=== PATIENT | female | born 1995 | race African-American/Black ===

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

== ENCOUNTER 2017-01-07 08:31 | Emergency (ER) | payer OTHER ==
[~2017-01-07] VITALS: Ht 162.6 cm; Wt 50.0 kg
--- NOTE | 2017-01-07 08:47 | PD ---
HPI . white particles in urine Chief Complaint: Complaint Time Seen by Provider: 08:47 Travel History International Travel<30 days: No Contact w/Intl Traveler<30days: No Traveled to known affect area: No History of Present Illness HPI 21-year-old female who was previously seen on December 14, 2016 with vaginal discharge and found to have chlamydia, here with complaints of white particles in her urine for the past 2 weeks. Patient tells me that about a month prior she had a Pap smear at her primary care doctor's office and everything was normal. She was seen here on December 14 for vaginal discharge and treated for chlamydia and gonorrhea. PCR testing demonstrated chlamydia. Patient is complaining now of small white particles in her urine. She is somewhat of a poor historian and tells me that she thinks she may have vaginal discharge. When asked to clarify, she now says that she does not have a vaginal discharge. I asked her about high risk sexual behavior, and her answer was also unclear. PFSH Past Medical History Diminished Hearing: No GERD: Yes Immunizations Current: Yes ?: Not LMP: 12/22/2016 Social History Alcohol Use: No Tobacco Use: No Substance Use: No Allergies-Medications (Allergen,Severity, Reaction): Coded Allergies: No Known Allergies (Unverified , 12/14/16) Reported Meds & Prescriptions Reported Meds & Active Scripts Active Review of Systems General / Constitutional: No: Fever Eyes: No: Visual changes HENT: No: Headaches Cardiovascular: No: Chest Pain or Discomfort Respiratory: No: Shortness of Breath Gastrointestinal: No: Abdominal Pain Genitourinary: Positive: Other (particles in urine), No: Dysuria Musculoskeletal: No: Pain Skin: No Rash Neurologic: No: Weakness Psychiatric: No: Depression Endocrine: No: Polydipsia Hematologic/Lymphatic: No: Easy Bruising Physical Exam Narrative GENERAL: AAO x 3, no acute distress, Well-nourished, well-developed patient. SKIN: Warm and dry. No visible rashes or bruising. HEAD: Normocephalic and atraumatic. EYES: No scleral icterus. No injection or drainage. ENT: No nasal drainage noted. Airway patent. NECK: Supple, trachea midline. No JVD. CARDIOVASCULAR: Regular rate and rhythm without murmurs, gallops, or rubs. RESPIRATORY: Breath sounds equal bilaterally. No accessory muscle use. No rhonchi or rales. GASTROINTESTINAL: Abdomen soft, non-tender, nondistended. : thick white discharge on pelvic exam: Marcy MERCADO present EXTREMITIES: No cyanosis or edema. BACK: Nontender without obvious deformity. No CVA tenderness. PSYCH: AAO x 3, normal affect. Data Data Orders Urinalysis - C+S If Indicated (01/07/17 08:38) Ed Urine Pregnancytest Poc (01/07/17 08:38) Gc And Chlamydia Pcr (01/07/17 08:52) Wet Prep Profile (01/07/17 09:01) Labs Laboratory Tests Test 01/07/17 01/07/17 08:50 09:05 Urine Color YELLOW Urine Turbidity CLEAR Urine pH 5.5 Urine Specific [place] 1.021 Urine Protein NEG mg/dL Urine Glucose (UA) NEG mg/dL Urine Ketones NEG mg/dL Urine Occult Blood NEG Urine Nitrite NEG Urine Bilirubin NEG Urine Urobilinogen LESS THAN 2.0 MG/DL Urine Leukocyte Esterase SMALL Urine RBC 1 /hpf Urine WBC 2 /hpf Urine Squamous Epithelial 7 /hpf Cells Urine Mucus FEW /lpf Microscopic Urinalysis Comment CULT NOT INDICATED Clue Cells (Wet Prep) NONE SEEN Vaginal Trichomonas (Wet Prep) NONE SEEN Vaginal Yeast (Wet Prep) NONE SEEN MDM Medical Decision Making Medical Screen Exam Complete: Yes Emergency Medical Condition: Yes Medical Record Reviewed: Yes Differential Diagnosis UTI versus vaginitis versus chlamydia versus gonorrhea versus BV Narrative Course 21-year-old female who was previously seen on December 14, 2016 with vaginal discharge and found to have chlamydia, here with complaints of white particles in her urine for the past 2 weeks. Patient tells me that about a month prior she had a Pap smear at her primary care doctor's office and everything was normal. She was seen here on December 14 for vaginal discharge and treated for chlamydia and gonorrhea. PCR testing demonstrated chlamydia. Patient is complaining now of small white particles in her urine. She is somewhat of a poor historian and tells me that she thinks she may have vaginal discharge. When asked to clarify, she now says that she does not have a vaginal discharge. I asked her about high risk sexual behavior, and her answer was also unclear. Patient seen and examined. The only abnormality found on examination was thick white vaginal discharge. Wet prep was sent for analysis. GC PCR and UA ordered. Laboratory Tests Test 01/07/17 01/07/17 08:50 09:05 Urine Color YELLOW Urine Turbidity CLEAR Urine pH 5.5 Urine Specific [place] 1.021 Urine Protein NEG mg/dL Urine Glucose (UA) NEG mg/dL Urine Ketones NEG mg/dL Urine Occult Blood NEG Urine Nitrite NEG Urine Bilirubin NEG Urine Urobilinogen LESS THAN 2.0 MG/DL Urine Leukocyte Esterase SMALL Urine RBC 1 /hpf Urine WBC 2 /hpf Urine Squamous Epithelial 7 /hpf Cells Urine Mucus FEW /lpf Microscopic Urinalysis Comment CULT NOT INDICATED Clue Cells (Wet Prep) NONE SEEN Vaginal Trichomonas (Wet Prep) NONE SEEN Vaginal Yeast (Wet Prep) NONE SEEN 1020: GC still pending: discussed with lab support service tech: will take 2 hours I discussed with patient and she tells me she has been treated twice of gonorrhea and chlamydia, so she is certain she does not have it. She tells me she does not want any additional treatment and will hold off until results are made available. She will also go to [place] for additional STD testing. We had a discussion about her UA, which does not show any acute infection. She denies any dysuria and admits to small particles. I have explained that the vaginal discharge can come off in the urine and have different appearance that regular urine. She will f/u with her PCP for this. Patient verbalized understanding of instructions, questions were answered, and thanked me for their care. I advised them if their condition worsens, please return to the nearest emergency room for further care. Diagnosis Primary Impression: Vaginal discharge Patient Instructions: General Instructions Additional Instructions: Please return to emergency department if your symptoms return or worsen. Follow up with your primary care provider. Disposition: 01 DISCHARGE HOME Condition: Stable Zena Cheek Jan 07, 2017 08:47
[2017-01-07 09:21] LABS: BLOOD, URINE NEG (NEG); COMMENT (UR) CULT NOT INDICATED; CULTURE IF INDICATED CULT NOT INDICATED; GLUCOSE,URINE NEG (NEG); KETONE, URINE NEG (NEG); MUCUS URINE FEW /lpf (OCC); NITRITE,URINE NEG (NEG); PH, URINE 5.5 (5.0-8.5); SQUAMOUS EPITHELIAL CELL URINE 7 /hpf (0-5); URINE COLOR YELLOW (YELLW/STRAW)
[2017-01-07 11:52] LABS: CHLAMYDIA PCR NOT DETECTED (NOT DETECT); NEISSERIA PCR NOT DETECTED (NOT DETECT)
== END 2017-01-07 10:33 | disposition home or self-care (01) ==
LOC: NEPK 08:31
DX: N89.8 Other specified noninflammatory disorders of vagina (principal)
CPT/HCPCS: 81001; 84703; 87210; 87491; 87591; 99283

== ENCOUNTER 2017-06-03 01:57 | Emergency (ER) | payer OTHER, MEDICAID ==
[~2017-06-03] VITALS: Ht 162.6 cm; Wt 50.0 kg
[2017-06-03 01:58] VITALS: BP 115/91; PULSE 99; RESP 16; TEMP 98; O2SAT 98
[2017-06-03] MEDS ORDERED: DEXAMETHASONE SOD PHOS 20 MG/5 ML VIAL IM ONE (03:00)
--- NOTE | 2017-06-03 03:01 | PD ---
HPI Chief Complaint: ENT Complaint Time Seen by Provider: 02:55 Travel History International Travel<30 days: No Contact w/Intl Traveler<30days: No Traveled to known affect area: No History of Present Illness HPI 21-year-old female with no significant medical history presents to department for evaluation of a sore throat for 5 hours. Patient states she has not been recently. No fever or chills. States that the pain is severe and she is unable to swallow secondary to it. She has not taken anything for her pain. She has no other symptoms to report. [facility] Past Medical History Diminished Hearing: No GERD: Yes Immunizations Current: Yes ?: Not LMP: 05/19/17 Past Surgical History Surgical History: No Previous Surgery Social History Alcohol Use: No Tobacco Use: No Substance Use: No Allergies-Medications (Allergen,Severity, Reaction): Coded Allergies: No Known Allergies (Unverified , 06/03/17) Reported Meds & Prescriptions Reported Meds & Active Scripts Active No Active Prescriptions or Reported Medications Review of Systems Except as stated in HPI: all other systems reviewed are Neg Physical Exam Narrative GENERAL: Well-nourished, well-developed patient. SKIN: Focused skin assessment warm/dry. HEAD: Normocephalic. ENT: Mucosa pink and moist. Pharynx mildly erythematous and edematous without exudate.. No uvular edema. No uvular, palatal, or tonsillar deviation. Airway patent. Nasal turbinates appear normal without nasal blood, purulent drainage or septal hematoma. EYES: No scleral icterus. No injection or drainage. NECK: Supple, trachea midline. Tonsillar lymphadenopathy. CARDIOVASCULAR: Regular rate and rhythm without murmurs, gallops, or rubs. RESPIRATORY: Breath sounds equal bilaterally. No accessory muscle use. GASTROINTESTINAL: Abdomen soft, non-tender, nondistended. MUSCULOSKELETAL: No cyanosis, or edema. BACK: Nontender without obvious deformity. No CVA tenderness. Data Data Last Documented VS Vital Signs Date Time Temp Pulse Resp B/P (MAP) Pulse Ox O2 Delivery O2 Flow Rate FiO2 06/03/17 03:16 06/03/17 01:58 98.0 99 16 98 Room Air Orders Orders Dexamethasone Inj (Decadron Inj) (06/03/17 03:00) MDM Medical Decision Making Medical Screen Exam Complete: Yes Emergency Medical Condition: Yes Medical Record Reviewed: Yes Differential Diagnosis Pharyngitis versus tonsillitis versus laryngitis versus allergies versus common cold Narrative Course 21-year-old female presents for his primary for evaluation of sore throat pain. Patient appears without distress. Vital signs are stable. She does have erythematous and edematous pharynx without exudates. Patient is requesting something to help the symptoms. She is given IM Decadron. She is counseled on care and encouraged follow-up with primary care provider. She agrees to return immediately with any acute worsening symptoms. Diagnosis Primary Impression: Pharyngitis Qualified Codes: J02.9 - Acute pharyngitis, unspecified Referrals: [facility] Primary Care Physician Patient Instructions: General Instructions, Pharyngitis (ED) Additional Instructions: Warm salt water gargles may help alleviate symptoms Tylenol or ibuprofen as directed on the package as needed for pain and or fever Avoid acidic and abrasive foods Follow up with your primary care provider Return immediately to the ED with acute worsening of symptoms Med/Other Pt SpecificInfo: No Change to Meds Scripts No Active Prescriptions or Reported Meds Disposition: 01 DISCHARGE HOME Condition: Stable YunielVal DONOVAN Jun 03, 2017 03:01
== END 2017-06-03 03:17 | disposition home or self-care (01) ==
LOC: NEPC 01:57
DX: J02.9 Acute pharyngitis, unspecified (principal); K21.9 Gastro-esophageal reflux disease without esophagitis
CPT/HCPCS: 96372; 99284; J1100

== ENCOUNTER 2017-09-29 19:57 | Inpatient (IN) | payer OTHER, MEDICAID ==
[~2017-09-29] VITALS: Ht 162.6 cm; Wt 53.6 kg
[2017-09-29 20:15] VITALS: BP 119/64; PULSE 74; RESP 16; TEMP 98.4; O2SAT 96
[2017-09-29] MEDS ORDERED: ONDANSETRON HCL 4 MG/2 ML VIAL IV PUSH ONE (20:45)
[2017-09-29] MEDS ORDERED: SODIUM CHLOR 0.9% 1000 ML INJ 1,000 ML IV ONE (20:45)
--- NOTE | 2017-09-29 20:54 | PD ---
HPI Chief Complaint: Psychiatric Symptoms Time Seen by Provider: 20:20 Travel History International Travel<30 days: No Contact w/Intl Traveler<30days: No Traveled to known affect area: No History of Present Illness HPI 21-year-old black female presents to emergency department under [place] act by PD. Patient allegedly had overdosed on Excedrin. She states that she had taken 10-15 tablets this evening sometime between 6 and 7:00. The patient told police that she really did not take that many. She only had taken 2 according to the patient. She states that she has had a suicide gesture ingestion 4 years ago. She states that she's been overwhelmed here lately and no one would leave her alone. She denies any other ingestions. She does admit to feeling nauseous and she had vomited in the ambulance bay. Patient denies any recent illnesses. She denies any cutting. No fever chills. No chest pain or shortness of breath. No abdominal pain or urinary symptoms. Denies pre-see. On Depo-Provera. Patient does smoke, drink alcohol and smokes marijuana. PFSH Past Medical History Narrative Medical Prior suicide gesture Diminished Hearing: No GERD: Yes Immunizations Current: Yes Tetanus Vaccination: < 5 Years ?: Not Past Surgical History Surgical History: No Previous Surgery Social History Alcohol Use: Yes Tobacco Use: Yes Substance Use: Yes Allergies-Medications (Allergen,Severity, Reaction): Coded Allergies: No Known Allergies (Unverified , 06/03/17) Reported Meds & Prescriptions Reported Meds & Active Scripts Active No Active Prescriptions or Reported Medications Review of Systems General / Constitutional: No: Fever Eyes: No: Visual changes HENT: No: Headaches Cardiovascular: No: Chest Pain or Discomfort Respiratory: No: Shortness of Breath Gastrointestinal: Positive: Nausea, Vomiting, No: Abdominal Pain Genitourinary: No: Dysuria Musculoskeletal: No: Pain Skin: No Rash Neurologic: No: Weakness Psychiatric: Positive: Depression, Suicidal Ideations, Mood Disorder, Substance Abuse, No: Anxiety, Disorder of Thought, Homicidal Ideation Endocrine: No: Polydipsia Hematologic/Lymphatic: No: Easy Bruising Physical Exam Narrative GENERAL: Well-nourished, well-developed patient. SKIN: Warm and dry. HEAD: Normocephalic and atraumatic. EYES: No scleral icterus. No injection or drainage. ENT: No nasal drainage noted. Mucous membranes pink. Airway patent. NECK: Supple, trachea midline. Moves head freely without obvious discomfort. CARDIOVASCULAR: Regular rate and rhythm without murmurs, gallops, or rubs. RESPIRATORY: Breath sounds equal bilaterally. No accessory muscle use. GASTROINTESTINAL: Abdomen soft, non-tender, nondistended. EXTREMITIES: No cyanosis or edema. BACK: Nontender without obvious deformity. No CVA tenderness. NEURO: Patient is alert and oriented. no sensorimotor deficits. Nonfocal. Normal speech. PSYCH: No delusions. No auditory or visual hallucinations. Data Data Last Documented VS Vital Signs Date Time Temp Pulse Resp B/P (MAP) Pulse Ox O2 Delivery O2 Flow Rate FiO2 09/29/17 20:15 98.4 74 16 119/64 (82) 96 Orders Orders Complete Blood Count With Diff (09/29/17 20:05) Comprehensive Metabolic Panel (09/29/17 20:05) Urinalysis - C+S If Indicated (09/29/17 20:05) Ed Urine Pregnancytest Poc (09/29/17 20:05) Psych Screen (09/29/17 20:05) Drug Screen, Random Urine (09/29/17 20:05) Alcohol (Ethanol) (09/29/17 20:05) Tylenol (Acetaminophen) (09/29/17 20:05) Salicylates (Aspirin) (09/29/17 20:05) Iv Access Insert/Monitor (09/29/17 20:33) Sodium Chlor 0.9% 1000 Ml Inj (Ns 1000 M (09/29/17 20:45) Ondansetron Inj (Zofran Inj) (09/29/17 20:45) Tylenol (Acetaminophen) (09/30/17 00:30) Salicylates (Aspirin) (09/30/17 00:30) Ondansetron Inj (Zofran Inj) (09/30/17 01:15) Labs Laboratory Tests Test 09/29/17 19:35 09/29/17 20:20 09/30/17 00:30 White Blood Count 8.4 TH/MM3 Red Blood Count 4.41 MIL/MM3 Hemoglobin 13.8 GM/DL Hematocrit 41.7 % Mean Corpuscular Volume 94.4 FL Mean Corpuscular Hemoglobin 31.2 PG Mean Corpuscular Hemoglobin Concent 33.1 % Red Cell Distribution Width 13.4 % Platelet Count 268 TH/MM3 Mean Platelet Volume 8.6 FL Neutrophils (%) (Auto) 49.5 % Lymphocytes (%) (Auto) 39.1 % Monocytes (%) (Auto) 10.4 % Eosinophils (%) (Auto) 0.6 % Basophils (%) (Auto) 0.4 % Neutrophils # (Auto) 4.2 TH/MM3 Lymphocytes # (Auto) 3.3 TH/MM3 Monocytes # (Auto) 0.9 TH/MM3 Eosinophils # (Auto) 0.1 TH/MM3 Basophils # (Auto) 0.0 TH/MM3 CBC Comment DIFF FINAL Differential Comment Blood Urea Nitrogen 13 MG/DL Creatinine 0.82 MG/DL Random Glucose 98 MG/DL Total Protein 8.2 GM/DL Albumin 4.8 GM/DL Calcium Level 10.0 MG/DL Alkaline Phosphatase 47 U/L Aspartate Amino Transf (AST/SGOT) 28 U/L Alanine Aminotransferase (ALT/SGPT) 28 U/L Total Bilirubin 1.5 MG/DL Sodium Level 138 MEQ/L Potassium Level 3.5 MEQ/L Chloride Level 102 MEQ/L Carbon Dioxide Level 22.8 MEQ/L Anion Gap 13 MEQ/L Estimat Glomerular Filtration Rate 109 ML/MIN Salicylates Level LESS THAN 1.7 MG/DL LESS THAN 1.7 MG/DL Acetaminophen Level 70.0 MCG/ML 34.7 MCG/ML Ethyl Alcohol Level LESS THAN 3 MG/DL Urine Color YELLOW Urine Turbidity CLEAR Urine pH 6.0 Urine Specific [place] 1.024 Urine Protein TRACE mg/dL Urine Glucose (UA) NEG mg/dL Urine Ketones 10 mg/dL Urine Occult Blood MOD Urine Nitrite NEG Urine Bilirubin NEG Urine Urobilinogen LESS THAN 2.0 MG/DL Urine Leukocyte Esterase SMALL Urine RBC 1 /hpf Urine WBC 3 /hpf Urine Squamous Epithelial Cells 2 /hpf Urine Bacteria RARE /hpf Urine Mucus FEW /lpf Microscopic Urinalysis Comment CULT NOT INDICATED Urine Opiates Screen NEG Urine Barbiturates Screen NEG Urine Amphetamines Screen NEG Urine Benzodiazepines Screen NEG Urine Cocaine Screen NEG Urine Cannabinoids Screen POS MDM Medical Decision Making Medical Screen Exam Complete: Yes Emergency Medical Condition: Yes Medical Record Reviewed: Yes Interpretation(s) Laboratory Tests Test 09/29/17 19:35 09/29/17 20:20 09/30/17 00:30 White Blood Count 8.4 TH/MM3 Red Blood Count 4.41 MIL/MM3 Hemoglobin 13.8 GM/DL Hematocrit 41.7 % Mean Corpuscular Volume 94.4 FL Mean Corpuscular Hemoglobin 31.2 PG Mean Corpuscular Hemoglobin Concent 33.1 % Red Cell Distribution Width 13.4 % Platelet Count 268 TH/MM3 Mean Platelet Volume 8.6 FL Neutrophils (%) (Auto) 49.5 % Lymphocytes (%) (Auto) 39.1 % Monocytes (%) (Auto) 10.4 % Eosinophils (%) (Auto) 0.6 % Basophils (%) (Auto) 0.4 % Neutrophils # (Auto) 4.2 TH/MM3 Lymphocytes # (Auto) 3.3 TH/MM3 Monocytes # (Auto) 0.9 TH/MM3 Eosinophils # (Auto) 0.1 TH/MM3 Basophils # (Auto) 0.0 TH/MM3 CBC Comment DIFF FINAL Differential Comment Blood Urea Nitrogen 13 MG/DL Creatinine 0.82 MG/DL Random Glucose 98 MG/DL Total Protein 8.2 GM/DL Albumin 4.8 GM/DL Calcium Level 10.0 MG/DL Alkaline Phosphatase 47 U/L Aspartate Amino Transf (AST/SGOT) 28 U/L Alanine Aminotransferase (ALT/SGPT) 28 U/L Total Bilirubin 1.5 MG/DL Sodium Level 138 MEQ/L Potassium Level 3.5 MEQ/L Chloride Level 102 MEQ/L Carbon Dioxide Level 22.8 MEQ/L Anion Gap 13 MEQ/L Estimat Glomerular Filtration Rate 109 ML/MIN Salicylates Level LESS THAN 1.7 MG/DL LESS THAN 1.7 MG/DL Acetaminophen Level 70.0 MCG/ML 34.7 MCG/ML Ethyl Alcohol Level LESS THAN 3 MG/DL Urine Color YELLOW Urine Turbidity CLEAR Urine pH 6.0 Urine Specific [place] 1.024 Urine Protein TRACE mg/dL Urine Glucose (UA) NEG mg/dL Urine Ketones 10 mg/dL Urine Occult Blood MOD Urine Nitrite NEG Urine Bilirubin NEG Urine Urobilinogen LESS THAN 2.0 MG/DL Urine Leukocyte Esterase SMALL Urine RBC 1 /hpf Urine WBC 3 /hpf Urine Squamous Epithelial Cells 2 /hpf Urine Bacteria RARE /hpf Urine Mucus FEW /lpf Microscopic Urinalysis Comment CULT NOT INDICATED Urine Opiates Screen NEG Urine Barbiturates Screen NEG Urine Amphetamines Screen NEG Urine Benzodiazepines Screen NEG Urine Cocaine Screen NEG Urine Cannabinoids Screen POS Differential Diagnosis MDM: High Differential diagnoses: Schizophrenia, schizoaffective disorder, bipolar, anxiety, depression, adjustment reaction, mood disorder NOS, ODD, depressive disorder NOS, dementia, dementia with agitation, psychosis NOS, substance induced mood disorder, DMDD, Asperger syndrome, infection,electrolyte abnormality, malingering. Narrative Course Mental health screening discussed with the patient. Psychiatric screen ordered. IV access is obtained. Patient's given liter bolus normal saline and 4 mg of Zofran IV. Routine laboratory tests for medical clearance performed. Patient's aspirin level was elevated at 70. It has come down to 34.7. Patient once again stated that she was nauseous and vomited the ER. She is given a second dose of Zofran 4 mg IV.. The patient has been medically cleared. This is nontoxic overdose, medical clearance for psychiatric admission Diagnosis Primary Impression: nontoxic overdose Additional Impression: Medical clearance for psychiatric admission Scripts No Active Prescriptions or Reported Meds Condition: Stable Shawn Gamboa Sep 29, 2017 20:54
[2017-09-29 21:10] LABS: AUTOMATED NEUTROPHIL # 4.2 TH/MM3 (1.8-7.7); BASOPHIL % 0.4 % (0.0-2.0); EOSINOPHIL # 0.1 TH/MM3 (0-0.4); EOSINOPHIL % 0.6 % (0.0-4.0); HEMATOCRIT 41.7 % (35.0-46.0); HEMOGLOBIN 13.8 GM/DL (11.6-15.3); LYMPH % 39.1 % (9.0-44.0); LYMPHOCYTE # 3.3 TH/MM3 (1.0-4.8); MEAN CELL VOLUME 94.4 FL (80.0-100.0); MEAN CORPUSCULAR HEMOGLOBIN 31.2 PG (27.0-34.0); MEAN CORPUSCULAR HGB CONC 33.1 % (32.0-36.0); MEAN PLATELET VOLUME 8.6 FL (7.0-11.0); MONO % 10.4 % (0.0-8.0); MONOCYTE # 0.9 TH/MM3 (0-0.9); NEUT % 49.5 % (16.0-70.0); PLATELET COUNT 268 TH/MM3 (150-450); RED BLOOD COUNT 4.41 MIL/MM3 (4.00-5.30); RED CELL DISTRIBUTION WIDTH 13.4 % (11.6-17.2); WHITE BLOOD COUNT 8.4 TH/MM3 (4.0-11.0)
[2017-09-29 21:21] LABS: BACTERIA, URINE RARE /hpf; BILIRUBIN, URINE NEG (NEG); BLOOD, URINE MOD (NEG); GLUCOSE,URINE NEG (NEG); KETONE, URINE 10 mg/dL (NEG); MUCUS URINE FEW /lpf (OCC); NITRITE,URINE NEG (NEG); SQUAMOUS EPITHELIAL CELL URINE 2 /hpf (0-5); URINE COLOR YELLOW (YELLW/STRAW); URINE LEUKOCYTE ESTERASE SMALL (NEG)
[2017-09-29 21:46] LABS: ALT (GPT) 28 U/L (9-42)
[2017-09-29 21:48] LABS: ALKALINE PHOSPHATASE 47 U/L (45-117); TOTAL BILIRUBIN ADULT 1.5 MG/DL (0.2-1.0); TOTAL PROTEIN 8.2 GM/DL (6.4-8.2)
[2017-09-29 21:58] LABS: ALBUMIN 4.8 GM/DL (3.4-5.0); AST (GOT) 28 U/L (16-38); BICARBONATE 22.8 MEQ/L (21.0-32.0); BLOOD UREA NITROGEN 13 MG/DL (7-18); CHLORIDE 102 MEQ/L (98-107); CREATININE 0.82 MG/DL (0.50-1.00); GLOMERULAR FILTRATION RATE 109 ML/MIN (>89); GLUCOSE,RANDOM 98 MG/DL (74-106); SODIUM (NA) 138 MEQ/L (136-145)
[2017-09-30] MEDS ORDERED: ONDANSETRON HCL 4 MG/2 ML VIAL IV PUSH ONE (01:15)
[2017-09-30] MEDS ORDERED: PROMETHAZINE INJ 25 MG/ML VIAL IM ONE (02:45)
[2017-09-30 07:44] VITALS: BP 114/74; PULSE 68; RESP 16; TEMP 100.3; O2SAT 100
[2017-09-30 10:50] VITALS: BP 166/72; PULSE 131; RESP 18; TEMP 98.9; O2SAT 98
[2017-09-30] MEDS ORDERED: MAGNESIUM HYDROXIDE SUSP 30 ML CUP PO PRN (11:15)
[2017-09-30] MEDS ORDERED: LORazepam 2 MG/ML VIAL IM PRN ×2 (11:15)
[2017-09-30] MEDS ORDERED: LORazepam 1 MG TAB PO PRN (11:15)
[2017-09-30] MEDS ORDERED: ALUMINUM/MAGNESIUM/SIMETH 30 ML CUP PO PRN (11:15)
[2017-09-30] MEDS ORDERED: LORazepam 0.5 MG TAB PO PRN (11:15)
[2017-09-30] MEDS ORDERED: ACETAMINOPHEN 325 MG TAB PO PRN (11:15)
--- NOTE | 2017-09-30 11:20 | HHI.HP ---
Provisional Diagnosis Admission Date [place] I. Adjustment disorder with depressed mood [place] II. Deferred [place] III. No significant medical history Certification of Person's Competence To Provide Express and Informed Consent I have personally examined Deepali Heredia , a person being served at [facility] on, Sep 30, 2017 11:06. Express and informed consent means consent voluntarily given in writing, by a competent person, after sufficient explanation and disclosure of the subject matter involved to enable the person to make a knowing and willful decision without any element of force, fraud, deceit, duress, or other form of constraint or coercion. This person is 18 years of age or older, is not now known to be incompetent to consent to treatment with a guardian advocate, and does not have a health care surrogate or proxy currently making medical treatment decisions. I have found this person to be one of the following: [] Competent to provide express and informed consent, as defined above, for voluntary admission to this facility and is competent to provide express and informed consent for treatment. He/she has the consistent capacity to make well reasoned, willful, and knowing decisions concerning his or her medical or mental health treatment. The person fully and consistently understands the purpose of the admission for examination/placement and is fully capable of personally exercising all rights assured [place] Incompetent to provide express and informed consent to voluntary admission, and this is incompetent to provide express and informed consent to treatment. The person must be transferred to involuntary status and a petition for a guardian advocate filed with the Circuit Court. [x] Refusing to provide express and informed consent to voluntary admission but is competent to provide express and informed consent for treatment. The person must be discharged or transferred to involuntary status. Form shall be completed within 24 hours of a person's arrival at the receiving facility and filed in the clinical record of each person: 1. Admitted on a voluntary basis 2. Permitted to provide express and informed consent to his/her own treatment 3. Allowed to transfer from involuntary to voluntary status 4. Prior to permitting a person to consent to his or her own treatment after having been previously found incompetent to consent to treatment. History of Present Illness Capacity: Has Capacity HPI The patient is a 21-year-old woman, college student, single, supported by her parents, with self-reported psychiatric history of depression, cannabis use disorder, 1 previous psychiatric hospitalization under [facility]iel act in the [facility] 2 years ago, 1 previous suicidal gesture, she is not in outpatient treatment, she is not taking any medication at this moment, no significant medical history, who presents to emergency department under [employer]iel act by PD. Patient allegedly had overdosed on Excedrin. She states that she had taken 10-15 tablets this evening sometime between 6 and 7:00. The patient told police that she really did not take that many. She only had taken 2 according to the patient. She states that she has had a suicide gesture ingestion 4 years ago. She states that she's been overwhelmed here lately and no one would leave her alone. She denies any other ingestions. On psychiatric evaluation in the ER, the patient is calm, cooperative, irritable and oppositional demanding to be discharged. The patient says that she did not take more than 2 pills and she just didn't with the intention of called attention and to stop the bullying behavior of her friends. Says that she has been in a lot of stress in the last 2 weeks, says that she has been constantly rejected and mistreated by peers in college. Yesterday she wanted to make appointment "I took 2 pills, no more, even thought I lied". I confronted the patient about her acetaminophen levels and the possibility of she may very took more than 2 pills and then she says "ok, I took about 15 pills". The patient seems to be very labile, childish, poor historian, making several contradictory statements. She reports that in the last 2 weeks she has been very overwhelmed , crying frequently, with mood swings, decreased sensitivity to frustration and rejection and having suicidal thoughts, but no specific plan. The patient reports that in the past she wasn't ready Curiel acted for a similar situation in high school. At this moment the patient denies suicidal and homicidal ideation, she denies visual and auditory hallucinations. No agitation, no aggressive behavior, no behavioral dysregulation noted at this moment. No prominent paranoia, delusions, impaired reality testing, guido present. Patient reports almost daily use of marijuana, occasional use of alcohol. Patient gave me permission to speak with her father by phone, we called in for collateral information several times, but he did not crab picker the phone. Review of Systems Constitutional: DENIES: Diaphoretic episodes, Fatigue, Fever, Weight gain, Weight loss, Chills, Dizziness, Change in appetite, Night Sweats Endocrine: DENIES: Abnorml menstrual pattern, Heat/cold intolerance, Polydipsia , Polyuria, Polyphagia Eyes: DENIES: Blurred vision, Diplopia, Eye inflammation, Eye pain, Vision loss , Photosensitivity, Double Vision Ears, nose, mouth, throat: DENIES: Tinnitus, Hearing loss, Vertigo, Nasal discharge, Oral lesions, Throat pain, Hoarseness, Ear Pain, Running Nose, Epistaxis, Sinus Pain, Toothache, Odynophagia Respiratory: DENIES: Apneas, Cough, Snoring, Wheezing, Hemoptysis, Sputum production, Shortness of breath Cardiovascular: DENIES: Chest pain, Palpitations, Syncope, Dyspnea on Exertion , PND, Lower Extremity Edema, Orthopnea, Claudication Gastrointestinal: DENIES: Abdominal pain, Black stools, Bloody stools, Constipation, Diarrhea, Nausea, Vomiting, Difficulty Swallowing, Anorexia Genitourinary: DENIES: Abnormal vaginal bleeding, Dysmenorrhea, Dyspareunia, Sexual dysfunction, Urinary frequency, Urinary incontinence, Urgency, Hematuria , Dysuria, Nocturia, Vaginal discharge Musculoskeletal: DENIES: Joint pain, Muscle aches, Stiffness, Joint Swelling, Back pain, Neck pain Integumentary: DENIES: Abnormal pigmentation, Pruritus, Rash, Nail changes, Breast masses, Breast skin changes, Nipple discharge Hematologic/lymphatic: DENIES: Bruising, Lymphadenopathy Immunologic/allergic: DENIES: Eczema, Urticaria Neurologic: DENIES: Abnormal gait, Headache, Localized weakness, Paresthesias, Seizures, Speech Problems, Tremor, Poor Balance Psychiatric: COMPLAINS OF: Mood changes, Suicidal Ideation Past Psych History Violence risk - self (6 mos) Increased Substance Abuse History Drugs/Alcohol past 12 months Patient reports daily use of cannabis, occasional use of alcohol Past Family Social History Coded Allergies: No Known Allergies (Unverified , 06/03/17) No Active Prescriptions or Reported Meds Current Medications Medications (Trade) Dose Ordered Sig/Jelly Route Start Time Stop Time Status Last Admin (Ativan) 1 mg Q6H PRN PO 09/30/17 11:15 UNV (Ativan Inj) 1 mg Q6H PRN IM 09/30/17 11:15 UNV (Ativan) 0.5 mg Q12H PRN PO 09/30/17 11:15 UNV (Ativan Inj) 0.5 mg Q12H PRN IM 09/30/17 11:15 UNV (Tylenol) 650 mg Q4H PRN PO 09/30/17 11:15 UNV (Milk Of Magnesia Liq) 30 ml DAILY PRN PO 09/30/17 11:15 UNV (Mag-Al Plus Susp Liq) 30 ml Q6H PRN PO 09/30/17 11:15 UNV (Habitrol 21 Mg Patch.24 Hr) 1 patch DAILY T-DERMAL 09/30/17 11:15 UNV Family Psych History Patient denies family psychiatric history Social History Patient was born and raised in [place], she lives in [facility] in the college dorms with a roommate, unemployed, college student, single, Patient's Strengths (min. 2) Family support, college student Physical Exam No tremors, no EPS, no stiffness, no withdrawal, no psychomotor agitation or retardation Vital Signs Vital Signs Date Time Temp Pulse Resp B/P (MAP) Pulse Ox O2 Delivery O2 Flow Rate FiO2 09/30/17 10:50 98.9 131 18 166/72 (103) 98 Room Air Lab Results Test 09/29/17 19:35 09/29/17 20:20 09/30/17 00:30 White Blood Count 8.4 TH/MM3 Red Blood Count 4.41 MIL/MM3 Hemoglobin 13.8 GM/DL Hematocrit 41.7 % Mean Corpuscular Volume 94.4 FL Mean Corpuscular Hemoglobin 31.2 PG Mean Corpuscular Hemoglobin Concent 33.1 % Red Cell Distribution Width 13.4 % Platelet Count 268 TH/MM3 Mean Platelet Volume 8.6 FL Neutrophils (%) (Auto) 49.5 % Lymphocytes (%) (Auto) 39.1 % Monocytes (%) (Auto) 10.4 % Eosinophils (%) (Auto) 0.6 % Basophils (%) (Auto) 0.4 % Neutrophils # (Auto) 4.2 TH/MM3 Lymphocytes # (Auto) 3.3 TH/MM3 Monocytes # (Auto) 0.9 TH/MM3 Eosinophils # (Auto) 0.1 TH/MM3 Basophils # (Auto) 0.0 TH/MM3 CBC Comment DIFF FINAL Differential Comment Blood Urea Nitrogen 13 MG/DL Creatinine 0.82 MG/DL Random Glucose 98 MG/DL Total Protein 8.2 GM/DL Albumin 4.8 GM/DL Calcium Level 10.0 MG/DL Alkaline Phosphatase 47 U/L Aspartate Amino Transf (AST/SGOT) 28 U/L Alanine Aminotransferase (ALT/SGPT) 28 U/L Total Bilirubin 1.5 MG/DL Sodium Level 138 MEQ/L Potassium Level 3.5 MEQ/L Chloride Level 102 MEQ/L Carbon Dioxide Level 22.8 MEQ/L Anion Gap 13 MEQ/L Estimat Glomerular Filtration Rate 109 ML/MIN Salicylates Level LESS THAN 1.7 MG/DL LESS THAN 1.7 MG/DL Acetaminophen Level 70.0 MCG/ML 34.7 MCG/ML Ethyl Alcohol Level LESS THAN 3 MG/DL Urine Color YELLOW Urine Turbidity CLEAR Urine pH 6.0 Urine Specific Byron 1.024 Urine Protein TRACE mg/dL Urine Glucose (UA) NEG mg/dL Urine Ketones 10 mg/dL Urine Occult Blood MOD Urine Nitrite NEG Urine Bilirubin NEG Urine Urobilinogen LESS THAN 2.0 MG/DL Urine Leukocyte Esterase SMALL Urine RBC 1 /hpf Urine WBC 3 /hpf Urine Squamous Epithelial Cells 2 /hpf Urine Bacteria RARE /hpf Urine Mucus FEW /lpf Microscopic Urinalysis Comment CULT NOT INDICATED Urine Opiates Screen NEG Urine Barbiturates Screen NEG Urine Amphetamines Screen NEG Urine Benzodiazepines Screen NEG Urine Cocaine Screen NEG Urine Cannabinoids Screen POS Mental Status Examination Appearance: Appropriate Consciousness: Alert Orientation: x4 Motor Activity: Normal gait Speech: Unremarkable Language: Adequate Fund of Knowledge: Adequate Attention and Concentration: Adequate Memory: Unremarkable Mood: Appropriate, Angry, Oppositional, Irritable Affect: Labile Thought Process & Associations: Intact Thought Content: Appropriate Hallucination Type: None Delusion Type: None Suicidal Ideation: Yes Suicidal Plan: No Suicidal Intention: No Homicidal Ideation: No Homicidal Plan: No Homicidal Intention: No Insight: Fair Judgment: Impulsive Assessment & Plan Problem List: (1) Adjustment disorder with depressed mood ICD Codes: F43.21 - Adjustment disorder with depressed mood Assessment & Plan: On psychiatric evaluation today the patient presents irritable, oppositional, with very labile mood, poor historian and making contradictory and vague statements regarding reason suicidal attempt. The patient reports that for the last 2 weeks she has been feeling overwhelmed, frustrated, with frequent mood swings, increased sensitivity to rejection and frustration, sleeping poorly, and having suicidal thoughts. She says that yesterday after an argument with a friend, she decided to take medications and overdose in order to make appointment and called their attention of her friends. She has already made about 3 different stories about these suicidal attempts. Her story seems to be very inconsistent and contradictory. At times she has stated that she tried to commit suicide by taking 30 pills, 2 pills, and 15 pills. Since we do not have any collateral information at this moment and no further information about previous psychiatric history, the patient represents an increase danger to self and she needs to be hospitalized for stabilization and safety. No medications indicated at this moment. Longitudinal observation of brought and behavior. woodworker helper intervention for psychosocial assessment, counseling, collateral information and to coordinate a safe discharge. I will consult psychiatry for a second opinion. A major mood disorder decompensation vs adjustment disorder with depressed mood vs substance-induced mood disorder vs personality disorder need to be carefully explored. Transfer to the psychiatric unit. Assessment & Plan Estimated LOS: days Oswaldo Dale MD Sep 30, 2017 11:20
[2017-09-30] MEDS: NICOTINE 21 MG/24 HR PATCH T-DERMAL SCH (11:51)
[2017-09-30 11:54] VITALS: BP 122/74; PULSE 94; RESP 18; TEMP 99; O2SAT 100
[2017-09-30 17:37] VITALS: BP 113/71; PULSE 84; RESP 16; TEMP 98.5; O2SAT 100
[2017-09-30] MEDS: REMOVE OLD NICODERM (NICOTINE) PATCH T-DERMAL SCH (21:00)
[2017-10-01 05:52] VITALS: BP 110/57; PULSE 70; RESP 18; TEMP 98.5; O2SAT 99
[2017-10-01] MEDS: NICOTINE 21 MG/24 HR PATCH T-DERMAL SCH (08:40)
[2017-10-01 09:07] LABS: BICARBONATE 27.1 MEQ/L (21.0-32.0); BLOOD UREA NITROGEN 14 MG/DL (7-18); CALCIUM 9.5 MG/DL (8.5-10.1); CHLORIDE 105 MEQ/L (98-107); CREATININE 0.95 MG/DL (0.50-1.00); GLOMERULAR FILTRATION RATE 92 ML/MIN (>89); GLUCOSE,RANDOM 135 MG/DL (74-106); SODIUM (NA) 139 MEQ/L (136-145)
[2017-10-01 09:08] LABS: CHOLESTEROL 160 MG/DL (120-200); TRIGLYCERIDES 36 MG/DL (42-150)
[2017-10-01 09:11] LABS: CHOLESTEROL/ HDL RATIO 2.73 RATIO; HDL CHOLESTEROL 58.4 MG/DL (40.0-60.0); LDL CHOLESTEROL 94 MG/DL (0-99)
[2017-10-01 12:31] LABS: HEMOGLOBIN A1C 5.6 % (4.3-6.0)
--- NOTE | 2017-10-01 12:49 | HHI.PYPN ---
Subjective Remarks His request for second opinion. Admission note was reviewed and I agree with this contents. Patient was seen and case was discussed with nursing. Patient minimizes her suicide attempt and her mental health stressors and history. She is vague concerning the events that led up to her overdose. Stressors include a boy she likes going back to his ex-and stress brought on her to over perform in school. She denies she has been depressed and says that this was an impulsive act. Refuses medication Mental Status Examination Appearance: Appropriate Consciousness: Alert Orientation: x4 Motor Activity: Normal gait Speech: Unremarkable Language: Adequate Fund of Knowledge: Adequate Attention and Concentration: Adequate Memory: Unremarkable Mood: Appropriate, Angry, Oppositional, Irritable Affect: Labile Thought Process & Associations: Intact Thought Content: Appropriate Hallucination Type: None Delusion Type: None Suicidal Ideation: No Suicidal Plan: No Suicidal Intention: No Homicidal Ideation: No Homicidal Plan: No Homicidal Intention: No Insight: Fair Judgment: Impulsive Results Labs Test 10/01/17 08:17 Blood Urea Nitrogen 14 MG/DL Creatinine 0.95 MG/DL Random Glucose 135 MG/DL Calcium Level 9.5 MG/DL Sodium Level 139 MEQ/L Potassium Level 3.8 MEQ/L Chloride Level 105 MEQ/L Carbon Dioxide Level 27.1 MEQ/L Anion Gap 7 MEQ/L Estimat Glomerular Filtration Rate 92 ML/MIN Triglycerides Level 36 MG/DL Cholesterol Level 160 MG/DL LDL Cholesterol 94 MG/DL HDL Cholesterol 58.4 MG/DL Cholesterol/HDL Ratio 2.73 RATIO Vitals/IOs Vital Signs Date Time Temp Pulse Resp B/P (MAP) Pulse Ox O2 Delivery O2 Flow Rate FiO2 10/01/17 05:52 98.5 70 18 110/57 (74) 99 09/30/17 11:54 Room Air Assessment & Plan Problem List: (1) Adjustment disorder with depressed mood ICD Codes: F43.21 - Adjustment disorder with depressed mood Assessment & Plan I agree with the first opinion to continue petition. Criteria include suicidal attempt Justification for Cont. Inpt. Patient will decompensate in a less restrictive setting All Rosario DO Oct 01, 2017 12:48
[2017-10-01 18:47] VITALS: BP 125/67; PULSE 104; RESP 18; TEMP 97.7; O2SAT 99
[2017-10-01] MEDS: REMOVE OLD NICODERM (NICOTINE) PATCH T-DERMAL SCH (21:00)
[2017-10-02 06:23] VITALS: BP 102/62; PULSE 69; RESP 16; TEMP 98; O2SAT 97
[2017-10-02] MEDS: NICOTINE 21 MG/24 HR PATCH T-DERMAL SCH (08:40)
--- NOTE | 2017-10-02 11:20 | HHI.DS ---
Psychiatry Discharge Summary Inpatient Psychiatric care?: No Advance Directive: No Mental Health AdvanceDirective: No Health Care Proxy: No Admission Admission Date Sep 30, 2017 at 11:06 Admission Diagnosis: (1) Adjustment disorder with depressed mood ICD Code: F43.21 - Adjustment disorder with depressed mood Brief History The patient is a 21-year-old woman, college student, single, supported by her parents, with self-reported psychiatric history of depression, cannabis use disorder, 1 previous psychiatric hospitalization under [facility]iel act in the [facility] 2 years ago, 1 previous suicidal gesture, she is not in outpatient treatment, she is not taking any medication at this moment, no significant medical history, who presents to emergency department under [facility]iel act by PD. Patient allegedly had overdosed on Excedrin. She states that she had taken 10-15 tablets this evening sometime between 6 and 7:00. The patient told police that she really did not take that many. She only had taken 2 according to the patient. She states that she has had a suicide gesture ingestion 4 years ago. She states that she's been overwhelmed here lately and no one would leave her alone. She denies any other ingestions. On psychiatric evaluation in the ER, the patient is calm, cooperative, irritable and oppositional demanding to be discharged. The patient says that she did not take more than 2 pills and she just didn't with the intention of called attention and to stop the bullying behavior of her friends. Says that she has been in a lot of stress in the last 2 weeks, says that she has been constantly rejected and mistreated by peers in college. Yesterday she wanted to make appointment "I took 2 pills, no more, even thought I lied". I confronted the patient about her acetaminophen levels and the possibility of she may very took more than 2 pills and then she says "ok, I took about 15 pills". The patient seems to be very labile, childish, poor historian, making several contradictory statements. She reports that in the last 2 weeks she has been very overwhelmed , crying frequently, with mood swings, decreased sensitivity to frustration and rejection and having suicidal thoughts, but no specific plan. The patient reports that in the past she wasn't ready Curiel acted for a similar situation in high school. At this moment the patient denies suicidal and homicidal ideation, she denies visual and auditory hallucinations. No agitation, no aggressive behavior, no behavioral dysregulation noted at this moment. No prominent paranoia, delusions, impaired reality testing, guido present. Patient reports almost daily use of marijuana, occasional use of alcohol. Patient gave me permission to speak with her father by phone, we called in for collateral information several times, but he did not tow picker the phone. Tobacco Use In Past 30 Days: No Tobacco Past 30 Days Alcohol Use: Never Hospital Course Patient was admitted in psychiatry after a suicidal attempt by overdosing. Psychiatric and psychosocial assessment were performed. Safety measures were taken. Patient reportedly overdosed with [id number] medications. She was at the beginning and be was and contradictory regarding the number of pills taken. Since the beginning the patient was minimizing the events and emotions behind it. She says that she was overwhelmed, having many interpersonal conflicts with peers, also have in some distress at school. Patient reports that overdose was a mistake, that she didn't with the intention to call the attention of her friends and create compassion. During her hospitalization the patient was usually calm, cooperative, childish at every moment she was looking for discharge. No agitation or aggressive behavior was reported. Actually the patient was very calm, cooperative and interactive in the unit. Today and evaluation the patient is a smiling, she reports happy mood, she says that she wants to be discharged and continue with her school. She is motivated to go to counseling in order to address her poor coping skills. She denies suicidal or homicidal ideation, she denies visual and auditory hallucinations. I am not recommending any medications at this moment. Results Blood Pressure 102 / 62 Vital Signs Date Time Temp Pulse Resp B/P (MAP) Pulse Ox O2 Delivery O2 Flow Rate FiO2 10/02/17 06:23 98.0 69 16 102/62 (75) 97 09/30/17 11:54 Room Air Laboratory Tests Test 09/29/17 19:35 09/29/17 20:20 09/30/17 00:30 10/01/17 08:17 Monocytes (%) (Auto) 10.4 % (0.0-8.0) Total Bilirubin 1.5 MG/DL (0.2-1.0) Salicylates Level LESS THAN 1.7 MG/DL LESS THAN 1.7 MG/DL Acetaminophen Level 70.0 MCG/ML (10.0-30.0) 34.7 MCG/ML (10.0-30.0) Urine Ketones 10 mg/dL (NEG) Urine Occult Blood MOD (NEG) Urine Leukocyte Esterase SMALL (NEG) Urine Bacteria RARE /hpf (NONE) Urine Mucus FEW /lpf (OCC) Urine Cannabinoids Screen POS (NEG) Random Glucose 135 MG/DL (74-106) Triglycerides Level 36 MG/DL (42-150) Laboratory Results Test 10/01/17 08:17 Cholesterol Level 160 MG/DL (120-200) HDL Cholesterol 58.4 MG/DL (40.0-60.0) Hemoglobin A1c 5.6 % (4.3-6.0) LDL Cholesterol 94 MG/DL (0-99) Triglycerides Level 36 MG/DL (42-150) Summary of Procedures None Pending results at discharge: No Medications # of Antipsychotic meds at D/C: 0 Approp Antipsych med options 1 - Minimum of three failed multiple trials of monotherapy. 2 - Documented plan to taper to monotherapy due to previous use of multiple meds OR cross-taper in progress at D/C. 3 - Documentation of augmentation of Clozapine. 4 - Justification other than those listed in allowable values 1-3, document here : Discharge Discharge Date: Oct 02, 2017 Discharge Diagnosis: (1) Adjustment disorder with depressed mood ICD Code: F43.21 - Adjustment disorder with depressed mood Pt Condition on Discharge: Stable Discharge Disposition: Discharge Home Discharge Instructions Diet Instructions: As Tolerated, No Restrictions Activities you can perform: Regular-No Restrictions Scheduled Appointment: [facility] Counseling Appointment Date: Oct 02, 2017 Appointment Time: 4pm Discharge Time > 30 minutes Mental Status Examination Appearance: Appropriate Consciousness: Alert Orientation: x4 Motor Activity: Normal gait Speech: Unremarkable Language: Adequate Fund of Knowledge: Adequate Attention and Concentration: Adequate Memory: Unremarkable Mood: Appropriate, Angry, Oppositional, Irritable Affect: Labile Thought Process & Associations: Intact Thought Content: Appropriate Hallucination Type: None Delusion Type: None Suicidal Ideation: No Suicidal Plan: No Suicidal Intention: No Homicidal Ideation: No Homicidal Plan: No Homicidal Intention: No Insight: Fair Judgment: Impulsive Discharge/Advance Care Plan Health Problems: (1) Adjustment disorder with depressed mood Goals to promote your health * To prevent worsening of your condition and complications * To maintain your health at the optimal level Directions to meet your goals Take your medications as prescribed Follow your dietary instruction Follow activity as directed Keep your appointments as scheduled Take your immunizations and boosters as scheduled If your symptoms worsen call your PCP, if no PCP go to Urgent Care Center or Emergency Room For 03/04 questions related to your inpatient stay or results of tests pending at discharge, please contact Dr. Oswaldo Dale at Smoking is Dangerous to Your Health. Avoid second hand smoking Oswaldo Dale MD Oct 02, 2017 11:20
== END 2017-10-02 12:45 | disposition home or self-care (01) | DRG 881 ==
LOC: NEPD 19:57 → NEDA 09-30 11:06 → H260 09-30 12:05
PROVIDERS: ADMIT Psychiatry & Neurology Psychiatry; ATTEND Psychiatry & Neurology Psychiatry
DX: F43.21 Adjustment disorder with depressed mood (principal); F17.200 Nicotine dependence, unspecified, uncomplicated; T39.1X2A Poisoning by 4-Aminophenol derivatives, intentional self-harm, initial encounter; F12.90 Cannabis use, unspecified, uncomplicated; K21.9 Gastro-esophageal reflux disease without esophagitis; Z81.8 Family history of other mental and behavioral disorders; Z91.5 Personal history of self-harm
CPT/HCPCS: 80048; 80053; 80061; 80307; 81001; 83036; 84703; 85025; 96361; 96372; 96374; 96376; J2405; J2550; J7030

== ENCOUNTER 2017-12-28 09:26 | Emergency (ER) | payer OTHER ==
[2017-12-28 09:44] VITALS: BP 128/79; PULSE 80; RESP 14; TEMP 98.4; O2SAT 98
[2017-12-28 10:46] LABS: AUTOMATED NEUTROPHIL # 3.2 TH/MM3 (1.8-7.7); BASOPHIL % 0.7 % (0.0-2.0); EOSINOPHIL # 0.1 TH/MM3 (0-0.4); EOSINOPHIL % 1.4 % (0.0-4.0); HEMATOCRIT 39.4 % (35.0-46.0); HEMOGLOBIN 13.2 GM/DL (11.6-15.3); LYMPH % 43.5 % (9.0-44.0); LYMPHOCYTE # 3.1 TH/MM3 (1.0-4.8); MEAN CELL VOLUME 92.5 FL (80.0-100.0); MEAN CORPUSCULAR HGB CONC 33.5 % (32.0-36.0); MEAN PLATELET VOLUME 8.2 FL (7.0-11.0); MONO % 9.3 % (0.0-8.0); MONOCYTE # 0.7 TH/MM3 (0-0.9); NEUT % 45.1 % (16.0-70.0); PLATELET COUNT 349 TH/MM3 (150-450); RED BLOOD COUNT 4.26 MIL/MM3 (4.00-5.30); RED CELL DISTRIBUTION WIDTH 13.6 % (11.6-17.2)
[2017-12-28 10:54] LABS: BILIRUBIN, URINE NEG (NEG); BLOOD, URINE MOD (NEG); GLUCOSE,URINE NEG (NEG); KETONE, URINE 10 mg/dL (NEG); MUCUS URINE MOD /lpf (OCC); NITRITE,URINE NEG (NEG); PH, URINE 5.5 (5.0-8.5); SQUAMOUS EPITHELIAL CELL URINE 2 /hpf (0-5); URINE COLOR YELLOW (YELLW/STRAW); URINE LEUKOCYTE ESTERASE SMALL (NEG)
[2017-12-28 11:02] LABS: BICARBONATE 27.4 MEQ/L (21.0-32.0); CALCIUM 9.2 MG/DL (8.5-10.1); CREATININE 0.8 MG/DL (0.50-1.00)
--- NOTE | 2017-12-28 11:06 | PD ---
HPI Chief Complaint: GI Complaint Time Seen by Provider: 10:36 Travel History International Travel<30 days: No Contact w/Intl Traveler<30days: No Traveled to known affect area: No History of Present Illness HPI 22-year-old female presents to the emergency department with 2 complaints. Her first complaint is dizziness and headache after hitting her head while getting into her car 4 days ago. She denies loss of consciousness. Denies vomiting. Denies change in mentation, confusion, disorientation, slurred speech, focal deficits or weakness. Rates headache 5/10. Headache is frontal. Headache gradually onset. Fluctuates in intensity. Has not taken any medications or trying treatments to alleviate her symptoms. No known aggravating or relieving factors. Her second complaint is bright red blood that came from her rectum this morning and rectal pain. She says she has had soft stools, not diarrhea, for the past 3 days. She is currently on her menstrual period but says she cleaned the area really good and the blood came from her rectum. Denies abdominal pain, vomiting, nausea. Complaining of normal menstrual cramping. Denies dysuria. mild in severity. Has not taken any medications or try any treatments to alleviate her symptoms. No known aggravating or relieving factors. No known allergies. No primary care provider. Denies significant past medical history. Has no other medical complaints. No other modifying factors or associated signs and symptoms. PFSH Past Medical History Medical History: Denies Significant Hx Diminished Hearing: No Gastrointestinal Disorders: Yes GERD: Yes Immunizations Current: Yes ?: Not LMP: CURRENTLY Past Surgical History Surgical History: No Previous Surgery Social History Alcohol Use: No (DENIES) Tobacco Use: No (DENIES) [facility]: [facility] Allergies-Medications (Allergen,Severity, Reaction): Coded Allergies: No Known Allergies (Unverified Allergy, Unknown, 09/30/17) Reported Meds & Prescriptions Reported Meds & Active Scripts Active No Active Prescriptions or Reported Medications Review of Systems Except as stated in HPI: all other systems reviewed are Neg Physical Exam Narrative GENERAL: Well-nourished, well-developed black female patient, in no acute distress; afebrile, nontoxic-appearing SKIN: Warm and dry. HEAD: Atraumatic. Normocephalic. No facial droop noted. Tongue midline. Shoulder shrug equal. Finger to nose test normal. EYES: Pupils equal and round at 3 mm with brisk reaction. No scleral icterus. No injection or drainage. PERRLA. EOMI. ENT: Mucosa pink and moist. Airway patent. NECK: Trachea midline. No lymphadenopathy. CARDIOVASCULAR: Regular rate and rhythm. No murmur appreciated. RESPIRATORY: No accessory muscle use. Breath sounds clear and equal bilaterally. No retractions or tachypnea. GASTROINTESTINAL: Abdomen soft, non-tender, nondistended. Positive bowel sounds. No hepato-splenomegaly, or palpable masses. No guarding. RECTAL EXAM: Exam done in the presence of a nurse. No masses or tenderness, stool is brown. Hemaprompt negative. No visualized external hemorrhoids. Blood noted to the vagina on exam. MUSCULOSKELETAL: No obvious deformities. No clubbing. No cyanosis. No edema. NEUROLOGICAL: Awake and alert. Oriented 4. No obvious cranial nerve deficits. Motor grossly within normal limits. Normal speech. No ataxia. No mid -line drift. No upper or lower extremity drift. Tanker Driver strength equal bilaterally. Sensory intact and equal bilaterally. Moves all extremities. Active plantar and dorsiflexion and strength equal bilaterally. 5/5 strength to all extremities. PSYCHIATRIC: Appropriate mood and affect; insight and judgment normal. Data Data Last Documented VS Vital Signs Date Time Temp Pulse Resp B/P (MAP) Pulse Ox O2 Delivery O2 Flow Rate FiO2 12/28/17 10:38 18 12/28/17 09:44 98.4 80 128/79 (95) 98 Orders Orders Complete Blood Count With Diff (12/28/17 09:46) Basic Metabolic Panel (Bmp) (12/28/17 09:46) Urinalysis - C+S If Indicated (12/28/17 09:46) Ed Urine Pregnancytest Poc (12/28/17 09:46) Ct Brain W/O Iv Contrast(Rout) (12/28/17 ) Ibuprofen (Motrin) (12/28/17 11:45) Labs Laboratory Tests Test 12/28/17 09:55 White Blood Count 7.0 TH/MM3 Red Blood Count 4.26 MIL/MM3 Hemoglobin 13.2 GM/DL Hematocrit 39.4 % Mean Corpuscular Volume 92.5 FL Mean Corpuscular Hemoglobin 31.0 PG Mean Corpuscular Hemoglobin Concent 33.5 % Red Cell Distribution Width 13.6 % Platelet Count 349 TH/MM3 Mean Platelet Volume 8.2 FL Neutrophils (%) (Auto) 45.1 % Lymphocytes (%) (Auto) 43.5 % Monocytes (%) (Auto) 9.3 % Eosinophils (%) (Auto) 1.4 % Basophils (%) (Auto) 0.7 % Neutrophils # (Auto) 3.2 TH/MM3 Lymphocytes # (Auto) 3.1 TH/MM3 Monocytes # (Auto) 0.7 TH/MM3 Eosinophils # (Auto) 0.1 TH/MM3 Basophils # (Auto) 0.0 TH/MM3 CBC Comment DIFF FINAL Differential Comment Urine Color YELLOW Urine Turbidity CLEAR Urine pH 5.5 Urine Specific Cameron 1.027 Urine Protein TRACE mg/dL Urine Glucose (UA) NEG mg/dL Urine Ketones 10 mg/dL Urine Occult Blood MOD Urine Nitrite NEG Urine Bilirubin NEG Urine Urobilinogen LESS THAN 2.0 MG/DL Urine Leukocyte Esterase SMALL Urine RBC 20 /hpf Urine WBC 4 /hpf Urine Squamous Epithelial Cells 2 /hpf Urine Mucus MOD /lpf Microscopic Urinalysis Comment CULT NOT INDICATED Blood Urea Nitrogen 14 MG/DL Creatinine 0.80 MG/DL Random Glucose 89 MG/DL Calcium Level 9.2 MG/DL Sodium Level 141 MEQ/L Potassium Level 3.7 MEQ/L Chloride Level 107 MEQ/L Carbon Dioxide Level 27.4 MEQ/L Anion Gap 7 MEQ/L Estimat Glomerular Filtration Rate 111 ML/MIN [facility] Medical Decision Making Medical Screen Exam Complete: Yes Emergency Medical Condition: Yes Medical Record Reviewed: Yes Differential Diagnosis Dizziness, headache, head injury, menses, hemorrhoids, anal fissures Narrative Course 22-year-old female with 2 complaints. She is currently on her menstrual cycle and I believe the blood that she was concerned of coming from her rectum this morning came from her vagina. Rectal exam was normal and heme a prompt was negative. She reports hitting her head without loss of consciousness 4 days ago. She is complaining of dizziness and headache. Neuro exam is unremarkable. CT head ordered. CBC, BMP, urinalysis ordered in triage and are all unremarkable. 1217: CT head with no acute findings. Discussed CT findings with the patient. Ibuprofen prescribed for home. Instructed patient to follow up with primary care provider. Patient verbalizes understanding and agreement with treatment plan. Patient is medically cleared and stable for discharge. Discussed reasons to return to the emergency department. Patient agrees with treatment plan. The patients vital signs are stable and the patient is stable for outpatient follow-up and treatment. Patient discharged home, stable and in no acute distress. Diagnosis Primary Impression: Head injury Qualified Codes: S09.90XA - Unspecified injury of head, initial encounter Additional Impressions: Acute headache Qualified Codes: R51 - Headache Dizziness Referrals: [facility] Primary Care Physician Patient Instructions: General Instructions, Head Injury (ED) Additional Instructions: Ibuprofen or Tylenol as directed and as needed to reduce headache [id number] meclizine as directed and as needed for dizziness Get plenty of rest: do not over sleep rest and relax in a dark, quiet room as needed Place an ice pack on the back of her neck to reduce head pain as needed Keep a headache diary of what triggers her headaches and what treatment is most effective Avoid identifiable triggers Avoid smoking, alcohol and caffeine consumption Reduce stress Follow-up with primary care provider within 1-2 days Return immediately to the emergency department with worsening symptoms Med/Other Pt SpecificInfo: Prescription(s) given Scripts Ibuprofen (Ibuprofen) 800 Mg Tab 800 MG PO Q8HR Y for PAIN, #30 TAB 0 Refills Prov: Cassidy Aguayo 12/28/17 Disposition: 01 DISCHARGE HOME Condition: Stable Cassidy Aguayo Dec 28, 2017 11:05
--- NOTE | 2017-12-28 11:44 | RADRPT ---
EXAM DATE/TIME: 12/28/2017 11:26 [place] COMPARISON: No previous studies available for comparison. INDICATIONS : Hit top of head now patient has a headache and dizzy. RADIATION DOSE: 56.77 CTDIvol (mGy) MEDICAL HISTORY : None SURGICAL HISTORY : None. ENCOUNTER: Initial ACUITY: 4 - 6 days PAIN SCALE: 7/10 LOCATION: Bilateral cranial TECHNIQUE: Multiple contiguous axial images were obtained of the head. Using automated exposure control and adj ustment of the mA and/or kV according to patient size, radiation dose was kept as low as reasonably a chievable to obtain optimal diagnostic quality images. DICOM format image data is available electro nically for review and comparison. FINDINGS: CEREBRUM: The ventricles are normal for age. No evidence of midline shift, mass lesion, hemorrhage or acute in farction. No extra-axial fluid collections are seen. POSTERIOR FOSSA: The cerebellum and brainstem are intact. The 4th ventricle is midline. The cerebellopontine angle i s unremarkable. EXTRACRANIAL: The visualized portion of the orbits is intact. SKULL: The calvaria is intact. No evidence of skull fracture. CONCLUSION: No acute intracranial disease. Cholo Ford MD on December 28, 2017 at 11:41 Board Certified Radiologist. This report was verified electronically.
[2017-12-28] MEDS ORDERED: IBUPROFEN 800 MG TAB PO ONE (11:45)
[2017-12-28] MEDS ORDERED: IBUP1TAB7 PO (12:21)
== END 2017-12-28 12:49 | disposition home or self-care (01) ==
LOC: NEPD 09:26
DX: S09.90XA Unspecified injury of head, initial encounter (principal); R51 Headache; R42 Dizziness and giddiness; W22.8XXA Striking against or struck by other objects, initial encounter
CPT/HCPCS: 70450; 80048; 81001; 84703; 85025; 99284

== ENCOUNTER 2018-01-11 21:29 | Emergency (ER) | payer OTHER ==
[~2018-01-11 21:29] MED LIST changes: -CIPR-9 PO; -DOXY100C PO; +IBUP1TAB7 PO; -MUPI2OIN TOPICAL; -OMEP10CA PO; -RANI150C PO
[2018-01-11 21:30] VITALS: BP 119/73; PULSE 78; RESP 15; TEMP 98.5; O2SAT 99
--- NOTE | 2018-01-11 22:52 | PD ---
HPI Chief Complaint: Fiscal Agent Problem/Complaint Time Seen by Provider: 22:24 Travel History International Travel<30 days: No Contact w/Intl Traveler<30days: No Traveled to known affect area: No History of Present Illness HPI 22-year-old female that presents to the ED for evaluation of vaginal itching and possible discharge. Per patient about 3 weeks ago she was seen at the [facility] where she gets her blood pressure. She was tested for multiple STDs as she was complaining of some discharge and some discomfort on her vagina. She denies any intercourse or risky behavior. She states that she was told that she had trichomonas and was started on 3 days of treatment. Per patient she was also given shots with improvement of symptoms. Per patient his symptoms improve and she continue had some some bleeding. Per patient the bleeding has stopped but now she is having vaginal discomfort for the past 4 days. Per patient feels like an itching. Denies any discharge. Denies any urinary symptoms. No . No abdominal pain. No other medical issues. She has been here before for STD and vaginal discharge in the past. She states that she is wondering this is a reaction to the Depo shot she had similar symptoms when she had the initial Depo shot. [facility] Past Medical History Medical History: Denies Significant Hx Diminished Hearing: No Gastrointestinal Disorders: Yes GERD: Yes Immunizations Current: Yes Tetanus Vaccination: < 5 Years Influenza Vaccination: Yes ?: Not LMP: 12/2017 Past Surgical History Surgical History: No Previous Surgery Social History Alcohol Use: No (DENIES) Tobacco Use: No (DENIES) Substance Use: Yes ([place]) Allergies-Medications (Allergen,Severity, Reaction): Coded Allergies: No Known Allergies (Unverified Allergy, Unknown, 01/11/18) Reported Meds & Prescriptions Reported Meds & Active Scripts Active Flagyl (Metronidazole) 500 Mg Tab 500 Mg PO BID 7 Days Review of Systems Except as stated in HPI: all other systems reviewed are Neg Physical Exam Narrative GENERAL: SKIN: Warm and dry. HEAD: Atraumatic. Normocephalic. EYES: Pupils equal and round. No scleral icterus. No injection or drainage. ENT: No nasal bleeding or discharge. Mucous membranes pink and moist. Tongue is midline. No uvula deviation. NECK: Trachea midline. No JVD. CARDIOVASCULAR: Regular rate and rhythm. RESPIRATORY: No accessory muscle use. Clear to auscultation. Breath sounds equal bilaterally. GASTROINTESTINAL: Abdomen soft, non-tender, nondistended. Hepatic and splenic margins not palpable. Pelvic exam: No obvious abnormality to the external aspect of the genitalia. Vaginal beavers appear to be intact. Patient does have some clear discharge from the clitoris with what appears to be white discharge as well. Otherwise exam appears to be very benign. No adnexal tenderness. No masses. No blood. MUSCULOSKELETAL: Extremities without clubbing, cyanosis, or edema. No obvious deformities. NEUROLOGICAL: Awake and alert. No obvious cranial nerve deficits. Motor grossly within normal limits. Five out of 5 muscle strength in the arms and legs. Normal speech. PSYCHIATRIC: Appropriate mood and affect; insight and judgment normal. Data Data Last Documented VS Vital Signs Date Time Temp Pulse Resp B/P (MAP) Pulse Ox O2 Delivery O2 Flow Rate FiO2 01/11/18 21:30 98.5 78 15 119/73 (88) 99 Orders Orders Gc And Chlamydia Pcr (01/11/18 22:24) Wet Prep Profile (01/11/18 22:24) Urinalysis - C+S If Indicated (01/11/18 22:24) Ed Urine Pregnancytest Poc (01/11/18 22:24) Labs Laboratory Tests Test 01/11/18 22:45 [facility] Medical Decision Making Medical Screen Exam Complete: Yes Emergency Medical Condition: Yes Medical Record Reviewed: Yes Differential Diagnosis Vaginitis versus vaginal discharge versus yeast infection Narrative Course 22-year-old female that presents to the ED for evaluation of vaginal itching. Patient was properly examined and was found to have signs and symptoms of unclear etiology. Patient's physical exam and pelvic exam are very reassuring. I do see some slight discharge. Labs were ordered. Patient will be signed out to my attending pending disposition and plan. Diagnosis Primary Impression: Vaginitis Qualified Codes: N76.0 - Acute vaginitis Patient Instructions: General Instructions Additional Instructions: Take med as prescribed. F/u with health department. See ED if worst. Med/Other Pt SpecificInfo: Prescription(s) given Scripts Metronidazole (Flagyl) 500 Mg Tab 500 MG PO BID for Infection for 7 Days, #14 TAB 0 Refills Prov: Maureen Agrawal DO 01/11/18 Disposition: 01 DISCHARGE HOME Condition: Fidencio Duncan January 11, 2018 22:52
[2018-01-11] MEDS ORDERED: METR-1 PO (23:03)
[2018-01-11 23:04] LABS: BILIRUBIN, URINE NEG (NEG); BLOOD, URINE NEG (NEG); GLUCOSE,URINE NEG (NEG); KETONE, URINE NEG (NEG); MUCUS URINE FEW /lpf (OCC); NITRITE,URINE NEG (NEG); SQUAMOUS EPITHELIAL CELL URINE <1 /hpf (0-5); URINE COLOR YELLOW (YELLW/STRAW); URINE LEUKOCYTE ESTERASE MOD (NEG)
== END 2018-01-12 01:44 | disposition home or self-care (01) ==
LOC: NEPC 21:29
DX: N76.0 Acute vaginitis (principal); F12.90 Cannabis use, unspecified, uncomplicated
CPT/HCPCS: 81001; 84703; 87210; 87491; 87591; 99283